=== PATIENT | male | born 1985 | race Two or more races ===

== ENCOUNTER 2023-02-06 09:30 | Emergency (ER) | payer BC, OTHER ==
[~2023-02-06] VITALS: Ht 180.3 cm; Wt 98.2 kg
[2023-02-06 09:40] VITALS: BP 141/57
[2023-02-06] MEDS ORDERED: BACDST PO (11:24)
[2023-02-06] MEDS ORDERED: CEPH-510 PO (11:24)
== END 2023-02-06 11:38 | disposition home or self-care (01) ==
LOC: ER 09:30
DX: L03.90 Cellulitis, unspecified (principal); Z88.6 Allergy status to analgesic agent; Z88.8 Allergy status to other drugs, medicaments and biological substances